=== PATIENT | female | born 1980 | race Hispanic/Latino ===

== ENCOUNTER 2017-04-09 09:15 | Inpatient (IN) | payer SELFPAY ==
[2017-04-09 11:58] LABS: #Eosinphils 0.1 thou/uL (0.0-0.7); #Lymphocytes 1.5 thou/uL (1.20-3.40); #Monocytes 0.5 thou/uL (0.11-0.59); #Neutrophils 2.7 thou/uL (1.40-6.50); %Basophils 0.6 % (0.0-1.0); %Eosinophils 2.8 % (0.0-10.0); %Lymphocytes 30.8 % (21.0-51.0); %Monocytes 10.8 % (0.0-10.0); Hematocrit 38.2 % (36.0-47.0); Mean Platelet Volume 6.6 fL (7.4-10.4); Red Blood Cell (RBC) Count 4.51 mill/uL (4.20-5.40); White Blood Cell (WBC) Count 4.9 thou/uL (4.8-10.8)
[2017-04-09] MEDS ORDERED: Fentanyl 100 MCG/2 ML VIAL ONE (12:06)
[2017-04-09] MEDS ORDERED: Ondansetron HCl/PF 4 MG/2 ML Vial ONE (12:06)
[2017-04-09 12:12] LABS: ALT (SGPT) 48 U/L (8-55); AST (SGOT) 54 U/L (5-34); Alkaline Phosphatase 91 U/L (40-150); Anion Gap 16 mmol/L (10-20); BUN (Urea Nitrogen) 24 mg/dL (7.0-18.7); Bilirubin, Total 0.8 mg/dL (0.2-1.2); CK (CPK) 146 U/L (29-168); Calc. Creatinine Clearance 0 mL/min (70-130); Calcium 10.5 mg/dL (7.8-10.44); Carbon Dioxide 17 mmol/L (22-29); Chloride 89 mmol/L (98-107); Estimated GFR-MDRD 75; Globulin 3.1 g/dL (2.4-3.5); Lipase 22 U/L (8-78)
[2017-04-09 12:15] LABS: Troponin I 0.053 ng/mL (< 0.028)
[2017-04-09 13:02] LABS: Glucose, Urine (Dipstick) Negative (Negative); Ketone, Urine > or equal to 80 mg/dL (Negative); Nitrite Negative (Negative); Protein, Urine (Dipstick) Negative (Neg-Trace)
[2017-04-09 13:03] LABS: Bilirubin Small (Negative); Blood, Urine Small (Negative); Urobilinogen 0.2 mg/dL (0.2-1.0)
[2017-04-09 13:19] LABS: Bacteria/HPF 1+ HPF (None Seen); Hyaline Casts/LPF 0-3 HYALINE CAST LPF (0-3 Hyaline); WBC/HPF 21-50 HPF (0-3)
[2017-04-09 13:34] LABS: RBC/HPF 0-3 HPF (0-3); Squamous Epithelial 0-3 HPF (0-3)
[2017-04-09] MEDS ORDERED: cefTRIAXone\\ROCEPHIN 1 GM VIAL ONE (14:22)
[2017-04-09 14:27] LABS: Potassium, Urine 67.4 mmol/L
--- NOTE | 2017-04-09 15:02 | RAD ---
PORTABLE AP CHEST RADIOGRAPH: Date: 04-09-17 History: Nausea and vomiting for 17 days. FINDINGS: Cardiac silhouette and pulmonary vasculature are within normal limits. There is a tiny focus of incr eased density overlying the right anterolateral third rib which may represent either a tiny bone isl and overlying calcified granuloma. Lungs are otherwise clear. Osseous structures intact. IMPRESSION: No acute cardiopulmonary process. POS: [facility]
[2017-04-09 15:34] LABS: Troponin I 0.106 ng/mL (< 0.028)
[2017-04-09 15:42] LABS: Anion Gap 14 mmol/L (10-20); BUN (Urea Nitrogen) 25 mg/dL (7.0-18.7); Calc. Creatinine Clearance 0 mL/min (70-130); Calcium 9.2 mg/dL (7.8-10.44); Carbon Dioxide 15 mmol/L (22-29); Chloride 92 mmol/L (98-107); Estimated GFR-MDRD Greater than 90
--- NOTE | 2017-04-09 16:17 | CT ---
CT ABDOMEN WITH IV CONTAST CT PELVIS WITH IV CONTRAST: Date: 04-09-17 History: Nausea, vomiting for 17 days. FINDINGS: There is a punctate calcification seen in the gallbladder lumen suggesting gallbladder calculus. There is a subcentimeter, two small to characterize, hypodense lesion superior pole left kidney. The lung bases, liver, spleen, pancreas, bilateral adrenal glands, right kidney, abdominal aorta and urinary bladder demonstrate a normal CT appearance. The uterus and adnexal structures demonstrate a normal CT appearance for the patient's age. Appendix is visualized and normal in caliber. There is no free fluid, fluid collection or lymphadenopathy seen in the abdomen or pelvis. No dilated loops of small bowel are seen. Osseous structures are intact. IMPRESSION: 1. No acute findings are seen in the abdomen or pelvis. 2. Cholelithiasis. 3. Subcentimeter too small to characterize hypodense lesion left kidney. 4. No CT evidence of appendicitis. POS: [facility]
[2017-04-09] MEDS ORDERED: ISOVUE-370 76%-LOCM 1 ML ONE (16:43)
[2017-04-09 17:20] VITALS: BMI 17.9
[2017-04-09] MEDS ORDERED: Bisacodyl 10 MG SUPP PR SCH (17:30)
[2017-04-09] MEDS: Docusate 100 MG CAP PO SCH (20:10)
[2017-04-09] MEDS ORDERED: Dextrose 50% Abboject 50 ML SYRINGE SLOW IVP PRN (20:53)
[2017-04-09] MEDS ORDERED: Dextrose 50% Abboject 50 ML SYRINGE SLOW IVP STA (20:53)
[2017-04-09] MEDS: Polyethylene Glycol 3350 17 GM Packet PO SCH ×2 (21:01→21:13)
[2017-04-09 21:03] LABS: Anion Gap 14 mmol/L (10-20); BUN (Urea Nitrogen) 20 mg/dL (7.0-18.7); Calc. Creatinine Clearance 64 mL/min (70-130); Calcium 8.4 mg/dL (7.8-10.44); Carbon Dioxide 14 mmol/L (22-29); Chloride 97 mmol/L (98-107); Estimated GFR-MDRD 80
[2017-04-09 21:09] LABS: Troponin I 0.094 ng/mL (< 0.028)
[2017-04-09] MEDS ORDERED: Ondansetron HCl/PF 4 MG/2 ML Vial IVP PRN (21:12)
[2017-04-09] MEDS ORDERED: Sodium Chloride 0.9% 1,000 ML IV SCH (21:15)
[2017-04-09] MEDS ORDERED: Ondansetron HCl/PF 4 MG/2 ML Vial IVP SCH (21:15)
[2017-04-09] MEDS: Acetaminophen 500 MG TAB PO PRN (21:59)
--- NOTE | 2017-04-09 23:05 | HP-2 ---
DATE OF ADMISSION: 04/09/2017 CODE STATUS: FULL. PRIMARY CARE PHYSICIAN: None. ATTENDING: Gentry Smyth M.D. RESIDENT: Rachel Kat MD HISTORIAN: Self. CHIEF COMPLAINT: Nausea and vomiting. HISTORY OF PRESENT ILLNESS: This is a 37-year-old female with no past medical history, who presents with nausea and vomiting started 17 days ago. She reports that she has been unable to keep it down any solids or liquids. She has not taken any medications for this. She has also not had a bowel m ovement in 6 days and has been having abdominal pain in the midepigastric suprapubic regions. She d enies any fever or chills. She also has had increased urinary frequency and has had episodes of diz ziness after vomiting, but has not passed out. In the ER, she was given 700 mL of normal saline, fe ntanyl 25 mcg x2 doses, 4 mg of Zofran, and 1 gram of Rocephin. PAST MEDICAL HISTORY: Gastritis. PAST SURGICAL HISTORY: x1. ALLERGIES: No known drug allergies. MEDICATIONS: Famotidine 20 mg daily. FAMILY HISTORY: None. SOCIAL HISTORY: Denies tobacco, alcohol, or drug use. REVIEW OF SYSTEMS: Twelve-point review of systems was conducted, was negative except what was menti oned in the HPI. PHYSICAL EXAMINATION: VITAL SIGNS: Blood pressure 78/46, pulse 79, respiratory rate 18, temperature 98.6, pulse ox 100% o n room air, current weight 45.8 kilograms. GENERAL: Alert and oriented x3, no acute distress, well-nourished, appropriately interactive. EYES: Pupils are equal, round, reactive to light. Extraocular muscles are intact. Conjunctivae wi thin normal limits. ENT: Nasal mucosa and oropharynx within normal limits. NECK: Supple, no lymphadenopathy, no thyromegaly. CARDIOVASCULAR: Regular rate and rhythm, no murmurs, gallops, 2+ radial pedal pulses. RESPIRATORY: Normal effort, no retraction. Clear to auscultation bilaterally. SKIN: Cold. No cyanosis, no lesions. ABDOMEN: Soft, tender to palpation in the midepigastric suprapubic regions. No rebound or guarding . Normoactive bowel sounds. No mass or distention. EXTREMITIES: No cyanosis or edema. MUSCULOSKELETAL: Structure and tone within normal limits. NEUROLOGIC: No focal deficits. PSYCHIATRIC: Appropriate. LABORATORY DATA: WBC 4.9, hemoglobin 13.4, hematocrit 38.2, and platelets 170. Sodium 118, potassi um 4.3, chloride 8.89, CO2 of 17, BUN 24, creatinine 0.84, GFR 75, glucose 68, calcium 10.5, AST 54, ALT 48, alkaline phosphatase 91, total bilirubin 0.8, total protein 7.0, albumin 3.9, lactic acid 1 .0, CK 146, CK-MB 3.2, troponin 0.053, lipase 22. Urinalysis: Specific gravity 1.020, blood small, protein negative, leukocyte esterase small, nitrate negative, ketones greater than 80, glucose nega tive, rbc's 0-3, wbc's 21-50, bacteria 1+, small bilirubin. Urine hCG negative. Urine osmolality 5 24, urine sodium 66, urine potassium 67.4. Chest x-ray no acute cardiopulmonary process. ASSESSMENT AND PLAN: This is a 37-year-old female who presents with: 1. Severe chronic hypovolemic hyponatremia. She has a history of nausea and vomiting for 17 days. Sodium of 118, the patient is status post 700 mL normal saline in the ED. Repeat sodium went down to 117. We will bolus with 1 liter normal saline. We will monitor BMPs q.4 h. Check p.m. and a.m. cortisol levels and we will check TSH. We will admit to IMCU. Fluid restrict and do strict I's and O's. 2. Hypertension. This is likely chronic. The patient became dizzy when it became as low as the 60 s/40s. The patient has been vomiting since this episode is likely related to this. We will monitor closely. We will give 1 liter normal saline bolus. 3. QT prolongation. We will monitor IMCU on tele. We will avoid meds at prolonged QT. Recheck EK G after the patient is resuscitated. 4. Urinary tract infection. The patient has suprapubic pain, increased urinary frequency. We will give her Rocephin. Check urine culture. 5. Indeterminate troponins. We will trend. No ischemic changes on EKG, likely demand ischemia. W e will give aspirin. 6. Constipation. The patient has not had a bowel movement in 6 days. We will give Dulcolax suppos itory and docusate p.r.n. 7. Gastritis. The patient has chronic gastritis. We will continue Pepcid. 8. Venous thromboembolism prophylaxis. The patient is low risk. We will give sequential compressi on devices. DISPOSITION: Admit to ICU. Symptomatic medication will be provided. History and physical exam as well as management discussed with Dr. Smyth.
[2017-04-10 00:47] LABS: Anion Gap 14 mmol/L (10-20); BUN (Urea Nitrogen) 18 mg/dL (7.0-18.7); Calc. Creatinine Clearance 69 mL/min (70-130); Calcium 8.9 mg/dL (7.8-10.44); Carbon Dioxide 16 mmol/L (22-29); Chloride 99 mmol/L (98-107); Estimated GFR-MDRD 87
[2017-04-10] MEDS ORDERED: Dextrose 5% in Water 500 ML IV SCH (01:15)
--- NOTE | 2017-04-10 02:10 | ADD-HP ---
ADDENDUM Please see Dr. Kat's history and physical, which I concur. Patient was seen and evaluated and exa mined with residents. HISTORY OF PRESENT ILLNESS: A 37-year-old female, who apparently about a month ago, came t o the emergency room complaining of abdominal pain or maybe as an outpatient urgent care, but ultras ound at that time showed cholelithiasis, but according to her, for about 17 days' stretch. She has been vomiting, no diarrhea; if anything, a little constipation, no fever. She did not really necess arily complain of abdominal pain, just intense nausea and when she showed up in the emergency room, her sodium was low at 118, bicarbonate is low at 17. Even after a bolus of fluids, sodium 117, bica rbonate down to 15. CT of the abdomen did show cholelithiasis, had a couple cardiac enzymes that ar e a little bit high. Thyroid also showed elevated TSH, so renal has already been consulted on her t o help us with this hyponatremia. Seems to be potentially urinary losses. Her urine sodium is elev ated by report. PAST MEDICAL HISTORY, PAST SURGICAL HISTORY, MEDICATIONS, FAMILY HISTORY, AND REVIEW OF SYSTEMS: Al l per the resident's history and physical. PHYSICAL EXAMINATION: VITAL SIGNS: Afebrile, vital signs are stable. Blood pressure is on the low end, but she is very t hin and certainly not in any apparent distress currently. ENT: Significant for conjunctivae not being pale. Sclerae anicteric. Oropharynx is slightly dry. NECK: No lymphadenopathy or thyromegaly. CHEST: Clear. CARDIOVASCULAR: Regular rate and rhythm. ABDOMEN: No hepatosplenomegaly, no masses, no rebound, no guarding. LABORATORY AND X-RAY FINDINGS: Lab work up again as described above, significant for non-anion gap acidosis and sodium level being 117, some indeterminate troponins. TSH elevated. CT did show the c holelithiasis. ASSESSMENT AND PLAN: 1. Hyponatremia. Assume this is from poor p.o. intake and possibly urinary loss almost looks like a renal tubular acidosis potential picture here causing this. So we will rehydrate with saline, but watch her sodium, has to make sure we are not potentially correcting too fast. Renal is involved. We will follow electrolytes closely. 2. Cholelithiasis. This is possibly the source of her vomiting and hypochloremic, gastrointestinal loss, vomiting, and dehydration . 3. Elevated troponin, potentially demand with the hypotension, but not too concerned of that. 4. Hypothyroidism. We will need to put her on replacement for that once she is taking p.o. We can consider IV, but at this point in time I do not delaying this can do much. I guess it potentially could be causing low sodium but doubt it is a huge player in this. The question is whether to take the gallbladder out and consider that.
[2017-04-10 04:39] LABS: #Eosinphils 0.1 thou/uL (0.0-0.7); #Monocytes 0.4 thou/uL (0.11-0.59); #Neutrophils 2.5 thou/uL (1.40-6.50); %Basophils 0.5 % (0.0-1.0); %Eosinophils 2.3 % (0.0-10.0); %Lymphocytes 24.5 % (21.0-51.0); %Monocytes 9.2 % (0.0-10.0); Hematocrit 30.8 % (36.0-47.0); Mean Platelet Volume 6.5 fL (7.4-10.4); Red Blood Cell (RBC) Count 3.57 mill/uL (4.20-5.40)
[2017-04-10 05:17] LABS: Anion Gap 11 mmol/L (10-20); BUN (Urea Nitrogen) 16 mg/dL (7.0-18.7); Calc. Creatinine Clearance 72 mL/min (70-130); Calcium 9.1 mg/dL (7.8-10.44); Carbon Dioxide 18 mmol/L (22-29); Chloride 99 mmol/L (98-107); Estimated GFR-MDRD Greater than 90
[2017-04-10] MEDS ORDERED: Dextrose 10% in Water 1,000 ML IV SCH (05:45)
--- NOTE | 2017-04-10 06:24 | CON ---
DATE OF CONSULTATION: 04/09/2017 CONSULTING PHYSICIAN: REASON FOR CONSULTATION: Hyponatremia. REASON FOR ADMISSION: Nausea for 17 days. HISTORY OF PRESENT ILLNESS: This is a 37-year-old female with past medical history of gastritis, came to the hospital with nausea for a few days and she was found to have a sodium of 180, Nephrology was consulted for hypernatremia. Admission blood pressure was 70/40, but seems like it is chronic for her. She is asymptomatic, no chest pain or palpitation reported. No fever or chills. She complains of being constipated. No diarrhea. She did not have bowel movements for a few days. PAST MEDICAL HISTORY: Positive for gastritis. PAST SURGICAL HISTORY: . HOME MEDICATIONS: Pepcid. ALLERGIES: No known drug allergies. SOCIAL HISTORY: No smoking, alcohol or illicit drug abuse. FAMILY HISTORY: No history of any kidney disease. REVIEW OF SYSTEMS: The following complete review of systems was negative unless otherwise mentioned in the HPI or below: Constitutional: Weight loss or gain, ability to conduct usual activities. Skin: Rash, itching. Eyes: Double vision, pain. ENT/Mouth: Nose bleeding, neck stiffness, pain, tenderness. Cardiovascular: Palpitations, dyspnea on exertion, orthopnea. Respiratory: Shortness of breath, wheezing, cough, hemoptysis, fever or night sweats. Gastrointestinal: Poor appetite, abdominal pain, heartburn, nausea, vomiting, constipation, or diarrhea. Genitourinary: Urgency, frequency, dysuria, nocturia. Musculoskeletal: Pain, swelling. Neurologic/Psychiatric: Anxiety, depression. Allergy/Immunologic: Skin rash, bleeding tendency. PHYSICAL EXAMINATION: GENERAL: This is a thin-built female, in mild distress. VITAL SIGNS: Temperature 98.2, pulse 106, respiratory rate 14, blood pressure 91/61. HEENT: Atraumatic, normocephalic. Oral mucosa is moist. NECK: Supple. CARDIOVASCULAR: S1, S2. Rate and rhythm regular. RESPIRATORY: Clear to auscultation. MUSCULOSKELETAL: No tenderness noted. DERMATOLOGIC: No skin rash. NEUROLOGIC: Alert, awake. PSYCHIATRIC: Mood and affect normal. LABORATORY FINDINGS: Hemoglobin stable. Sodium is 180, potassium is 4.3, BUN is 24, creatinine is 0.8. ASSESSMENT AND PLAN: 1. Severe hyponatremia. Sodium level is 118, most likely from volume depletion , adrenal insufficiency is also a possibility. Check cortisol level. I agree with 1 liter IV bolus and normal saline 50 mL per hour given her small stature. 2. Acidosis. Continue IV fluids with close monitoring of labs. 3. Monitor sodium q.4 h. x2 or 3 times. Goal is to keep sodium less than 8-10 mEq in the next 24 hours. 4. Hypercalcemia, most likely from volume depletion. 5. Hemoconcentration. 6. Ketosis with ketonuria. Urine sodium is 66. Overall, plan is to continue IV fluids with close monitoring of sodium. Goal, not to correct the sodium more than 8-10 mEq in 24 hours. We will continue to follow. Thank you for the consultation. MEGAN
[2017-04-10] MEDS: Famotidine 20 MG TAB PO SCH (08:06)
[2017-04-10] MEDS: Aspirin 81 mg Enteric Coated Tablet PO SCH (08:06)
[2017-04-10] MEDS: Docusate 100 MG CAP PO SCH ×2 (08:06→19:15)
[2017-04-10] MEDS: Cosyntropin 250 MCG VIAL SLOW IVP SCH (08:17)
[2017-04-10 08:39] LABS: Anion Gap 10 mmol/L (10-20); BUN (Urea Nitrogen) 15 mg/dL (7.0-18.7); Calc. Creatinine Clearance 73 mL/min (70-130); Calcium 9.4 mg/dL (7.8-10.44); Carbon Dioxide 20 mmol/L (22-29); Chloride 99 mmol/L (98-107); Estimated GFR-MDRD Greater than 90
--- NOTE | 2017-04-10 09:26 | PDOC.FM ---
- Subjective Subjective: CC: Nausea and light headedness HPI: Reports episodes of orthostatic hypotension associated with N/V overnight. Also reports abdominal pain in RUQ. No other concerns. - Objective MAR Reviewed: Yes Vital Signs & Weight: Vital Signs (12 hours) Temp Pulse Resp BP Pulse Ox 04/10/17 08:00 99.5 F 103 H 18 77/43 L 100 04/10/17 07:45 98.7 F 107 H 18 100 04/10/17 04:11 98.7 F 107 H 18 86/43 L 100 04/10/17 00:00 93 20 83/46 L 100 04/09/17 22:00 79 20 71/39 L 99 I&O: 04/09/17 04/10/17 04/11/17 06:59 06:59 06:59 Intake Total 1050 Output Total 500 Balance 550 Result Diagrams: 04/10/17 04:32 04/10/17 08:03 <Ryan Carr - Last Filed: 04/10/17 09:24> - Objective Vital Signs & Weight: Vital Signs (12 hours) Temp Pulse Resp BP Pulse Ox 04/10/17 12:00 97.4 F L 92 16 70/48 L 100 04/10/17 08:00 99.5 F 103 H 18 77/43 L 100 04/10/17 07:45 98.7 F 107 H 18 100 04/10/17 04:11 98.7 F 107 H 18 86/43 L 100 I&O: 04/09/17 04/10/17 04/11/17 06:59 06:59 06:59 Intake Total 1050 100 Output Total 500 Balance 550 100 Result Diagrams: 04/10/17 04:32 04/10/17 08:03 <Faviola aZfar - Last Filed: 04/10/17 12:44> Phys Exam - Physical Examination Constitutional: NAD HEENT: moist MMs, sclera anicteric Respiratory: no wheezing, clear to auscultation bilateral Cardiovascular: RRR, no significant murmur Gastrointestinal: soft, non-tender Musculoskeletal: no edema, pulses present Neurological: non-focal <Ryan Carr - Last Filed: 04/10/17 09:24> Dx/Plan (1) Hyponatremia with extracellular fluid depletion Code(s): E87.1 - HYPO-OSMOLALITY AND HYPONATREMIA Status: Acute Plan: Likely chronic given 2 week history of symptoms. Nephrology following. Appreciate Recs. - Na corrected from 118 to 125 in approximately 6 hours. Has been receiving D5 and now D10W. - Continue q4hr BMP - Possibly 2/2 adrenal insufficiency- awaiting cortisol stimulation test. (2) Cholelithiasis Code(s): K80.20 - CALCULUS OF GALLBLADDER W/O CHOLECYSTITIS W/O OBSTRUCTION Status: Acute Qualifiers: Cholelithiasis location: gallbladder Cholecystitis presence: with cholecystitis Cholecystitis acuity: unspecified acuity Biliary obstruction: without biliary obstruction Qualified Code(s): K80.00 - Calculus of gallbladder with acute cholecystitis without obstruction Plan: PRN pain medication. may be etiology of N/V although hypotension more likely. (3) Urinary tract infection Status: Acute Qualifiers: Urinary tract infection type: acute cystitis Hematuria presence: without hematuria Qualified Code(s): N30.00 - Acute cystitis without hematuria Plan: Rocephin day 2. - continue abx. (4) Prolonged QT interval Code(s): R94.31 - ABNORMAL ELECTROCARDIOGRAM [ECG] [EKG] Status: Acute Plan: Monitor. Avoid QT prolonging drugs. - Will repeat EKG after electrolytes corrected. (5) Hypotension Status: Acute Qualifiers: Hypotension type: unspecified hypotension type Qualified Code(s): I95.9 - Hypotension, unspecified Plan: Likely etiology of N/V since N/V worse upon standing and with movement. - could be 2/2 adrenal insufficiency <Ryan Carr - Last Filed: 04/10/17 09:24> Attending Addendum - Attending Addendum I personally evaluated the patient and discussed the management with Dr. Carr I agree with the History, Examination, Assessment and Plan documented above with any addition or exceptions noted below. 37 yo female admitted for acute adrenal crisis HD#1 New dx. Denies abdominal pain, N/V today. Still not able to tolerate much PO. BP improving with hydrocortisone. K stable. Na improving with replacement. Will continue slow replacement. Does not appear to have sex hormones affected. Unsure etiology at this time but possibly also has Stefano's. Will call and discuss case with endocrinology. Case management following due to issues with patient being uninsured. Does not appear to have UTI. Will hold antibx. Check FLP, ACTH, renin, and aldosterone from ER blood draws. Rule out TB. Need to determine primary vs secondary vs tertiary. Daniel <Faviola Zafar - Last Filed: 04/10/17 12:44>
--- NOTE | 2017-04-10 12:07 | PRG ---
DATE OF SERVICE: 04/10/2017 SUBJECTIVE: This is a 37-year-old female being seen for hyponatremia. The patient denies any nause a, vomiting or chest pain. PHYSICAL EXAMINATION: GENERAL: Patient is awake, alert. VITAL SIGNS: Afebrile, pulse 107, breathing 16, blood pressure 86/43. OBJECTIVE: See above. Awake, alert, in no acute distress. GENERAL APPEARANCE AND MENTAL STATUS: Fair. HEAD/NECK: Normocephalic. Atraumatic. EYES: EOMI. No deformity. EARS: Clear. No ulcers. NOSE: Intact. No lesions. MOUTH: Clear. No discharge. THROAT: Clear. No exudate. LUNGS: Clear. No crackles. CARDIAC: S1, S2. No rub. ABDOMEN: Benign. BS+. GENITALIA/RECTUM: Martinez absent. BACK/EXTREMITIES: Edema 0+ Ulcer- NEUROLOGICAL: Alert and motor intact. SKIN: Rash- Bruise- LYMPHATICS: Edema- Ulcer- LABORATORY: Hemoglobin 11.1, sodium 125. ASSESSMENT AND RECOMMENDATIONS: 1. Hyponatremia, most likely because of adrenal insufficiency, would recommend urgent Endocrine con sultation. 2. Metabolic acidosis, stable. 3. Hyponatremia correcting slowly.
[2017-04-10] MEDS ORDERED: cefTRIAXone\\ROCEPHIN 1 GM in Sodium Chloride 0.9% 100 ML IVPB SCH (14:00)
[2017-04-10 14:05] LABS: Anion Gap 8 mmol/L (10-20); BUN (Urea Nitrogen) 12 mg/dL (7.0-18.7); Calc. Creatinine Clearance 71 mL/min (70-130); Calcium 9.5 mg/dL (7.8-10.44); Carbon Dioxide 22 mmol/L (22-29); Chloride 99 mmol/L (98-107); Estimated GFR-MDRD 90
--- NOTE | 2017-04-10 14:27 | CON ---
DATE OF CONSULTAITON: 04/10/2017 HISTORY OF PRESENT ILLNESS: Ms. Walter is a 37-year-old female. She has a history of being in the em ergency room in February. At that time, she presented with abdominal discomfort, nausea, vomiting. She was noted to be relati vely hypotensive then. She had an abdominal ultrasound that showed gallstones, but a normal gallbladder. LABORATORY DATA: Her sodium now is 131, bicarbonate is 18, BUN 20, creatinine 0.84. She presented back yesterday with sodium of 118, potassium 4.3, chloride 89, bicarbonate 17, BUN 24, creatinine 0.8, calcium 10.5 with very similar complaints. Her Cortisol level was less than 1. ACTH stimulation test shows no measurable cortisol with Cortros yn injection. PAST MEDICAL HISTORY: Otherwise unremarkable. SOCIAL HISTORY: She is non-smoker, nondrinker. FAMILY HISTORY: Negative for lung disease at an early age. PHYSICAL EXAMINAITON: VITAL SIGNS: She is afebrile, heart rate 92, respiratory rate 16, oximetry is 100%, blood pressure 70/48 at noon, it was 83/46 earlier today. HEENT: Pupils are equal. Sclerae is anicteric. NECK: Supple. LUNGS: Clear. HEART: Regular rhythm. S1 and S2 are normal. ABDOMEN: Soft and nontender. EXTREMITIES: Without clubbing, cyanosis or edema. IMPRESSION: Adrenal crisis. PLAN: IV Solu-Medrol, IV hydration. She is on empiric broad antimicrobial therapy, I doubt she is septic
[2017-04-10] MEDS ORDERED: Dextrose 5 % And 0.9 % NaCl 1,000 ML IV SCH (15:45)
[2017-04-10 18:15] LABS: Anion Gap 12 mmol/L (10-20); BUN (Urea Nitrogen) 10 mg/dL (7.0-18.7); Calc. Creatinine Clearance 68 mL/min (70-130); Calcium 9.5 mg/dL (7.8-10.44); Carbon Dioxide 19 mmol/L (22-29); Chloride 100 mmol/L (98-107); Estimated GFR-MDRD 86
[2017-04-10 21:48] LABS: Anion Gap 14 mmol/L (10-20); BUN (Urea Nitrogen) 8 mg/dL (7.0-18.7); Calc. Creatinine Clearance 63 mL/min (70-130); Calcium 9.4 mg/dL (7.8-10.44); Carbon Dioxide 19 mmol/L (22-29); Chloride 103 mmol/L (98-107); Estimated GFR-MDRD 79
[2017-04-11 06:20] LABS: Anion Gap 11 mmol/L (10-20); BUN (Urea Nitrogen) 9 mg/dL (7.0-18.7); Calc. Creatinine Clearance 77 mL/min (70-130); Calcium 9.2 mg/dL (7.8-10.44); Carbon Dioxide 20 mmol/L (22-29); Chloride 104 mmol/L (98-107); Estimated GFR-MDRD Greater than 90
--- NOTE | 2017-04-11 06:40 | PDOC.FM ---
- Subjective Subjective: CC: feeling better HPI: Reports N/V have improved. No dizziness upon standing. Explained she needs additional lab work for evaluation. at bedside. - Objective MAR Reviewed: Yes Vital Signs & Weight: Vital Signs (12 hours) Temp Pulse Resp BP Pulse Ox 04/11/17 03:59 98.9 F 92 18 85/45 L 98 04/11/17 00:00 98.6 F 94 18 80/41 L 99 04/10/17 20:00 99.2 F 99 20 98/49 L 99 04/10/17 19:28 98.9 F 100 16 100 Weight Admit Weight 42.996 kg Weight 43 kg I&O: 04/09/17 04/10/17 04/11/17 06:59 06:59 06:59 Intake Total 1050 1360 Output Total 500 Balance 550 1360 Result Diagrams: 04/10/17 04:32 04/11/17 04:04 <Ryan Carr - Last Filed: 04/11/17 07:51> - Objective Vital Signs & Weight: Vital Signs (12 hours) Temp Pulse Resp BP Pulse Ox 04/11/17 20:00 98.6 F 78 16 94/54 L 99 04/11/17 12:00 66 14 96/56 L Weight Admit Weight 42.996 kg Weight 43 kg I&O: 04/10/17 04/11/17 04/12/17 06:59 06:59 06:59 Intake Total 1050 1920 1460 Output Total 500 Balance 550 1920 1460 Result Diagrams: 04/10/17 04:32 04/11/17 04:04 <Faviola Zafar - Last Filed: 04/11/17 21:09> Phys Exam - Physical Examination Constitutional: NAD HEENT: moist MMs, sclera anicteric Respiratory: no wheezing, clear to auscultation bilateral Cardiovascular: RRR, no significant murmur Gastrointestinal: soft, non-tender Neurological: non-focal, moves all 4 limbs Psychiatric: normal affect, A&O x 3 <Ryan Carr - Last Filed: 04/11/17 07:51> Dx/Plan (1) Primary adrenal insufficiency Code(s): E27.1 - PRIMARY ADRENOCORTICAL INSUFFICIENCY Status: Acute Plan: Etiology unknown at this time. - solumedrol started by Pulm/CCU. will plan to switch to PO prednisone once tolerating PO - will contact endocrinology for inpatient consultation - awaiting aldosterone, renin, and quant gold to further evaluate - will likely need mineralocorticoid to counteract sodium wasting. (2) Hyponatremia with extracellular fluid depletion Code(s): E87.1 - HYPO-OSMOLALITY AND HYPONATREMIA Status: Acute Plan: Likely chronic given 2 week history of symptoms. Nephrology following. Appreciate Recs. - Na corrected from 118 to 125 in approximately 6 hours. Has been receiving D5 and now D10W. - Continue q4hr BMP - Possibly 2/2 adrenal insufficiency- awaiting cortisol stimulation test. (3) Cholelithiasis Code(s): K80.20 - CALCULUS OF GALLBLADDER W/O CHOLECYSTITIS W/O OBSTRUCTION Status: Acute Qualifiers: Cholelithiasis location: gallbladder Cholecystitis presence: with cholecystitis Cholecystitis acuity: unspecified acuity Biliary obstruction: without biliary obstruction Qualified Code(s): K80.00 - Calculus of gallbladder with acute cholecystitis without obstruction Plan: PRN pain medication. may be etiology of N/V although hypotension more likely. (4) Urinary tract infection Status: Acute Qualifiers: Urinary tract infection type: acute cystitis Hematuria presence: without hematuria Qualified Code(s): N30.00 - Acute cystitis without hematuria Plan: Rocephin day 3. Likely caused by contaminant - d/c abx. (5) Prolonged QT interval Code(s): R94.31 - ABNORMAL ELECTROCARDIOGRAM [ECG] [EKG] Status: Acute Plan: Monitor. Avoid QT prolonging drugs. - Will repeat EKG after electrolytes corrected. (6) Hypotension Status: Acute Qualifiers: Hypotension type: unspecified hypotension type Qualified Code(s): I95.9 - Hypotension, unspecified Plan: Likely etiology of N/V since N/V worse upon standing and with movement. 2/2 adrenal insufficiency <Ryan Carr - Last Filed: 04/11/17 07:51> Attending Addendum - Attending Addendum I personally evaluated the patient and discussed the management with Dr. Carr I agree with the History, Examination, Assessment and Plan documented above with any addition or exceptions noted below. 37 yo female admitted for acute adrenal crisis HD#2 New dx of adrenal insufficiency but etiology unknown. Continues to improve. Tolerating PO. BP and electrolytes improving with steroids. Will transition from IV to PO when tolerating regular diet. Case management following due to issues with patient being uninsured. Does not appear to have Stefano's dz. Antibodies negative. TSH elevation likely secondary to acute changes. Will need repeat testing as outpatient. Plan: Will transfer to tele for now due to occational borderline BP. Will hopefully transition to PO steroids (glucocorticoid and mineralcorticoid activity). Case discussed with endocrin over the phone today. Daniel <Faviola Zafar - Last Filed: 04/11/17 21:09>
[2017-04-11] MEDS: Famotidine 20 MG TAB PO SCH (08:40)
[2017-04-11] MEDS: Aspirin 81 mg Enteric Coated Tablet PO SCH (08:40)
[2017-04-11] MEDS: Docusate 100 MG CAP PO SCH ×2 (08:40→21:10)
[2017-04-11] MEDS: Cosyntropin 250 MCG VIAL SLOW IVP SCH (08:40)
--- NOTE | 2017-04-11 11:43 | PRG ---
DATE OF SERVICE: 04/11/2017 SUBJECTIVE: This is a 37-year-old female being seen for hyponatremia. The patient denies any nause a, vomiting, or chest pain. OBJECTIVE: GENERAL: Patient is awake, alert. VITAL SIGNS: , blood pressure was 98/49. GENERAL APPEARANCE AND MENTAL STATUS: Fair. HEAD/NECK: Normocephalic. Atraumatic. EYES: EOMI. No deformity. EARS: Clear. No ulcers. NOSE: Intact. No lesions. MOUTH: Clear. No discharge. THROAT: Clear. No exudate. LUNGS: Clear. No crackles. CARDIAC: S1, S2. No rub. ABDOMEN: Benign. BS+. GENITALIA/RECTUM: Martinez absent. BACK/EXTREMITIES: Edema 0+ Ulcer-. NEUROLOGICAL: Alert and motor intact. SKIN: Rash- Bruise-. LYMPHATICS: Edema- Ulcer-. LABORATORY DATA: Hemoglobin 11.1, sodium 131, creatinine 0.67. ASSESSMENT AND RECOMMENDATIONS: Chronic kidney disease, stage 1, stable. Hyponatremia, stable. Adrenal insufficiency advised endoc rinology followup. I will sign off on this patient. Please reconsult as needed.
[2017-04-11] MEDS ORDERED: Hydrocortisone Sod Succ/PF 100 mg/2 ml Vial IVP SCH (12:00)
--- NOTE | 2017-04-11 18:41 | PRG ---
DATE OF SERVICE: 04/11/2017 SUBJECTIVE: Ms. Walter is clinically improved. Blood pressure and vital signs are stabilizing. As soon as she can be documented that she is taking enteral nutrition regularly. She can be switche d to 10 mg prednisone twice a day and this could be adjusted to either hydrocortisone and her predni sone, once she is out of here. Hydrocortisone in 10 in the a.m. and 10 of hydrocortisone in the stephen jono would be an ultimate goal 5 of prednisone in the morning and 2.5 in the afternoon. She will need to get medical alert bracelet. Hopefully, she can be discharged home soon and followe d closely as an outpatient.
[2017-04-12] MEDS: Acetaminophen 500 MG TAB PO PRN (05:45)
[2017-04-12 06:13] LABS: Anion Gap 12 mmol/L (10-20); BUN (Urea Nitrogen) 12 mg/dL (7.0-18.7); Calc. Creatinine Clearance 83 mL/min (70-130); Calcium 9.1 mg/dL (7.8-10.44); Carbon Dioxide 18 mmol/L (22-29); Chloride 109 mmol/L (98-107); Estimated GFR-MDRD Greater than 90
--- NOTE | 2017-04-12 06:43 | PDOC.FM ---
- Subjective Subjective: CC: feeling great HPI: Patient, , and daughter present at bedside. [employer] phone used. Explained disease at length including treatment and various scenarios where her medication would need to be adjusted. Planned outpatient follow up at [facility]. All questions answered. - Objective MAR Reviewed: Yes Vital Signs & Weight: Vital Signs (12 hours) Temp Pulse Resp BP Pulse Ox 04/12/17 04:00 98.2 F 79 16 102/76 98 04/12/17 00:00 98.1 F 69 16 99/64 99 04/11/17 22:20 98.1 F 70 18 103/66 100 04/11/17 20:00 98.6 F 78 16 94/54 L 99 Weight Admit Weight 42.996 kg Weight 43 kg I&O: 04/10/17 04/11/17 04/12/17 06:59 06:59 06:59 Intake Total 1050 1920 1700 Output Total 500 Balance 550 1920 1700 Result Diagrams: 04/10/17 04:32 04/12/17 05:22 <Ryan Carr - Last Filed: 04/12/17 11:18> - Objective Vital Signs & Weight: Vital Signs (12 hours) Temp Pulse Resp BP Pulse Ox 04/12/17 12:16 97.7 F 73 16 101/66 98 04/12/17 08:26 98.0 F 73 16 93/54 L 99 04/12/17 08:00 98.0 F 73 16 04/12/17 04:00 98.2 F 79 16 102/76 98 Weight Admit Weight 42.996 kg Weight 43 kg I&O: 04/11/17 04/12/17 04/13/17 06:59 06:59 06:59 Intake Total 1920 1700 Balance 1920 1700 Result Diagrams: 04/10/17 04:32 04/12/17 05:22 <Faviola Zafar - Last Filed: 04/12/17 12:30> Phys Exam - Physical Examination Constitutional: NAD HEENT: moist MMs, sclera anicteric Respiratory: no wheezing, clear to auscultation bilateral Cardiovascular: RRR, no significant murmur Neurological: non-focal, moves all 4 limbs Psychiatric: normal affect, A&O x 3 <Ryan Carr - Last Filed: 04/12/17 11:18> Dx/Plan (1) Primary adrenal insufficiency Code(s): E27.1 - PRIMARY ADRENOCORTICAL INSUFFICIENCY Status: Acute Plan: Etiology unknown at this time. - Plan to switch to po hydrocortisol today - spoke with endocrinology at [facility] yesterday for recommendations - awaiting aldosterone, renin, and quant gold to further evaluate - Clinically improving - Needs bracelet per Pulm. will have case management work on arrangements. - Plan for d/c today. discussed d/c planning at length with director of dance. (2) Hyponatremia with extracellular fluid depletion Code(s): E87.1 - HYPO-OSMOLALITY AND HYPONATREMIA Status: Resolved Plan: Resolved. (3) Cholelithiasis Code(s): K80.20 - CALCULUS OF GALLBLADDER W/O CHOLECYSTITIS W/O OBSTRUCTION Status: Acute Qualifiers: Cholelithiasis location: gallbladder Cholecystitis presence: with cholecystitis Cholecystitis acuity: unspecified acuity Biliary obstruction: without biliary obstruction Qualified Code(s): K80.00 - Calculus of gallbladder with acute cholecystitis without obstruction Plan: PRN pain medication. may be etiology of N/V although hypotension more likely. (4) Prolonged QT interval Code(s): R94.31 - ABNORMAL ELECTROCARDIOGRAM [ECG] [EKG] Status: Acute Plan: Monitor. Avoid QT prolonging drugs. - Will repeat EKG today (5) Hypotension Status: Acute Qualifiers: Hypotension type: unspecified hypotension type Qualified Code(s): I95.9 - Hypotension, unspecified Plan: resolved <Ryan Carr - Last Filed: 04/12/17 11:18> Attending Addendum - Attending Addendum I personally evaluated the patient and discussed the management with Dr. Carr I agree with the History, Examination, Assessment and Plan documented above with any addition or exceptions noted below. 37 yo female admitted for acute adrenal crisis HD#3 Patient at baseline. No complaints. New dx of adrenal insufficiency but etiology unknown. All issues resolved with steroids. Tolerating regular diet. Has follow up scheduled with . BP and electrolytes stable. TSH needs to be repeated in 4 wks. Antibodies negative. Plan: >30 min education provided today. Education material provided to patient and family as well in [place]. Will likely d/c to home this afternoon. Will transition to prednison 10 mg/5 mg per endocrine recs. Has follow up appt scheduled with [facility] early next week. Precautions discussed. Daniel <Faviola Zafar - Last Filed: 04/12/17 12:30>
[2017-04-12] MEDS: Aspirin 81 mg Enteric Coated Tablet PO SCH (08:35)
[2017-04-12] MEDS: Famotidine 20 MG TAB PO SCH (08:35)
[2017-04-12] MEDS: Docusate 100 MG CAP PO SCH (08:35)
[2017-04-12 12:17] VITALS: BP 101/66; TEMP 97.7
--- NOTE | 2017-04-12 18:47 | DIS-2 ---
DATE OF ADMISSION: 04/09/2017 DATE OF DISCHARGE: 04/12/2017 RESIDENT: Ryan Carr M.D. ADMITTING ATTENDING: Gentry Smyth M.D. DISCHARGE ATTENDING: Faviola Zafar M.D. CONSULTATIONS: 1. Dr. Heather Hayden, Nephrology. 2. Dr. Valentin Lewis, Nephrology. 3. Dr. Fred Burt, Pulmonology. PROCEDURES: None. IMAGIN. CT abdomen and pelvis, no acute findings of the abdomen and pelvis, cholelithiasis, subcentimeter, hypodense lesion in the left kidney, and no evidence of appendicitis. 2. Chest x-ray, no acute cardiopulmonary processes. PERTINENT LABORATORY FINDINGS: Sodium at the time of admission 118, trended down to 117 and finally discharged at 135. Sodium was initially corrected at a rate of approximately 0.5 mEq per hour for the first 24 hours of admission. Troponins initially 0.053, trended up to 0.120 and down to 0.094. Calcium at the time of admission 10.5, at the time of discharge 9.1. TSH 5.5936. Free T4 of 0.82. A.m. cortisol level less than 1. Adrenocorticotropic hormone (ACTH) 1200. ACTH stimulation test at baseline less than 1; after ACTH given, cortisol was less than 1 at 30, 60, and 90 minutes, test were repeated twice. Renin and aldosterone activity pending. QuantiFERON Gold pending at this time. MICROBIOLOGY: Blood cultures negative at 48 hours. Urine culture negative after 36 hours. PRIMARY DIAGNOSES: 1. New onset adrenal insufficiency, presenting in acute adrenal crisis. 2. Chronic hypovolemic hyponatremia, resolved with steroids and fluids. 3. Subclinical hypothyroidism. 4. Prolonged QT interval, resolved on repeat EKG at the time of discharge. SECONDARY DIAGNOSES: 1. Cholelithiasis. 2. Hypotension secondary to adrenal insufficiency, resolved at the time of discharge. DISCHARGE MEDICATIONS: 1. Hydrocortisone 10 mg q.a.m. and 5 mg at bedtime. 2. Aspirin 81 mg daily. DISCONTINUED MEDICATIONS: None. HISTORY OF PRESENT ILLNESS AND HOSPITAL COURSE: Ms. Walter is a pleasant 37-year -old female with unremarkable past medical history, who presented with a 2-1/2-week history of nausea and vomiting. She was seen in the ER approximately 3 weeks prior to admission and was found to have a sodium of 131 at this time. Repeat labs at the time of admission showed sodium of 118. She was started on normal saline; however, initially corrected too rapidly and was switched to D5 water. Nausea, vomiting, and hypotension persisted. A.m. cortisol level was checked and was found to be undetectable. Cortisol response test showed negative response to ACTH stimulation. Renin, aldosterone, and ACTH levels were drawn. ACTH is markedly elevated. Aldosterone and renin activity is pending at this time. The patient was started on Solu-Medrol, and her symptoms improved rapidly. Sodium also corrected appropriately. Endocrinology at [facility] in [place] was contacted to discuss her management and recommend treatment options. They recommended she be discharged on hydrocortisone 10 mg q.a.m. and 5 mg at bedtime. On the day of discharge, the patient's condition and treatment were discussed at length using veterinary surgeon phone with her and daughter present. All questions were answered. The patient was instructed to call [facility] prior to discharge to arrange followup appointment in 1 week. It was explained that she will need close outpatient followup and that should she become ill or unable to take her hydrocortisone every day, she should go to the clinic to receive adjustment of her steroid therapy as well as parenteral option for her steroid treatment. Vital signs at the time of discharge were stable. DISPOSITION: The patient was discharged in stable condition. Her long-term prognosis is favorable if she is compliant with her therapy. It was explained to the patient at length that if she is not noncompliant with her therapy, her condition could be life-threatening. DISCHARGE INSTRUCTIONS: 1. Location: Home. 2. Diet: No restrictions. Regular. 3. Activity: As tolerated. 4. Followup: The patient is to follow up at [facility] within 7 days of discharge to establish care and for routine followup. Ideally, she would follow up with an head of history but given her uninsured status that will be difficult. The patient was also instructed to acquire a medical alert bracelet from the pharmacy indicating that she has adrenal insufficiency, should she become incapacitated and unable to communicate that with health care providers in the future. Approximately 35 minutes were spent on this discharge with Dr. Zafar present, providing patient education and helping arrange discharge planning. MEGAN
--- NOTE | 2017-04-13 09:06 | EKG ---
Test Reason : Blood Pressure : / mmHG Vent. Rate : 060 BPM Atrial Rate : 060 BPM P-R Int : 136 ms QRS Dur : 082 ms QT Int : 428 ms P-R-T Axes : 045 031 019 degrees QTc Int : 428 ms Normal sinus rhythm Normal ECG When compared with ECG of 09-APR-2017 13:09, (Unconfirmed) QT has shortened Confirmed by PAPA LOWE ([id number]) on 04/13/2017 9:05:48 AM Referred By: ADRIANA Confirmed By:PAPA LOWE
== END 2017-04-12 14:00 | disposition home or self-care (01) | DRG 644 ==
LOC: ERS 09:15 → IMCU/EMU 17:04 → T4-B 04-11 22:09
PROVIDERS: ADMIT Family Medicine; ATTEND Family Medicine
DX: E27.40 Unspecified adrenocortical insufficiency (principal); E87.1 Hypo-osmolality and hyponatremia; I95.9 Hypotension, unspecified; E87.2 Acidosis; E88.89 Other specified metabolic disorders; N30.00 Acute cystitis without hematuria; E02 Subclinical iodine-deficiency hypothyroidism; K80.20 Calculus of gallbladder without cholecystitis without obstruction; N18.1 Chronic kidney disease, stage 1; E83.52 Hypercalcemia
CPT/HCPCS: 36415; 36416; 71010; 74177; 80048; 80053; 80061; 80400; 81003; 81015; 81025; 82024; 82088; 82533; 82550; 82553; 82570; 83605; 83690; 83930; 83935; 84133; 84244; 84300; 84439; 84443; 84484; 85025; 86376; 86480; 86800; 87040; 87086; 87389; 93005; 93010; 96361; 96365; 96375; 96376; A4216; J0696; J0834; J2405; J2920; J3010